=== PATIENT | female | born 1925 | race Asian ===

== ENCOUNTER 2017-04-11 17:07 | Inpatient (IN) | payer MEDICARE ==
[~2017-04-11] VITALS: Ht 152.4 cm; Wt 37.6 kg
[2017-04-11] MEDS ORDERED: AZOPT10 ML OP (17:21)
[2017-04-11] MEDS ORDERED: MILK OF MA400 MG/51 ORAL (17:21)
[2017-04-11] MEDS ORDERED: COMBIGAN EYE DRO5 ML OP (17:21)
[2017-04-11] MEDS ORDERED: ILEVRO1.7 ML OP (17:21)
[2017-04-11] MEDS ORDERED: CATAPRES0.1 MG ORAL (17:21)
[2017-04-11] MEDS ORDERED: HYDRALAZINE HC100 MG ORAL (17:21)
[2017-04-11] MEDS ORDERED: MULTIVITAMINS1 EAC2 ORAL (17:21)
[2017-04-11] MEDS ORDERED: LEVOTHYROXINE88 MCG ORAL (17:21)
[2017-04-11] MEDS ORDERED: ARTIFICIALS TEA30 M1 OP (17:21)
[2017-04-11] MEDS ORDERED: DULCOLAX STOOL100 M1 PO (17:21)
[2017-04-11] MEDS ORDERED: TRAMADOL HCL50 MG ORAL (17:21)
[2017-04-11] MEDS ORDERED: ACETAMINOPHEN325 M1 ORAL (17:21)
[2017-04-11 17:28] VITALS: BP 184/93
[2017-04-11] MEDS ORDERED: Tetracaine 0.5% Opth Soln ONE (17:33)
[2017-04-11] MEDS ORDERED: Tetracaine 0.5% Opth Soln RIGHT EYE ONE (17:45)
[2017-04-11 18:37] VITALS: BP 200/72
[2017-04-11 19:20] VITALS: BP 178/78
[2017-04-11] MEDS ORDERED: Vancomycin Intravitreal Inj IVITRE ONE (20:00)
[2017-04-11 20:14] LABS: BASOPHILS % (AUTO) 0.7 % (0.0-2.0); EOSINOPHILS % (AUTO) 1.7 % (0.0-3.0); MEAN CORPUSCULAR HEMOGLOBIN 33.1 PG (27.0-31.0); MEAN CORPUSCULAR HGB CONC 34.1 G/DL (32.0-36.0); MEAN CORPUSCULAR VOLUME 97 FL (80-99); MEAN PLATELET VOLUME 6.4 FL (6.5-10.1); MONOCYTES % (AUTO) 7.7 % (1.0-10.0); PLATELET COUNT 216 K/UL (150-450); RED BLOOD COUNT 4.11 M/UL (4.20-5.40); RED CELL DISTRIBUTION WIDTH 13.2 % (11.6-14.8); WHITE BLOOD COUNT 10.2 K/UL (4.8-10.8)
[2017-04-11 20:29] LABS: INR 0.9 (0.9-1.1); PROTHROMBIN TIME 9.5 SEC (9.30-11.50)
[2017-04-11 20:33] LABS: TROPONIN I < 0.30 ng/mL (<=0.30)
[2017-04-11 20:36] LABS: ALANINE AMINOTRANSFERASE 18 U/L (3-33); ALBUMIN/GLOBULIN RATIO 1.4 (1.0-2.7); ANION GAP 12 (5-15); ASPARTATE AMINO TRANSFERASE 24 U/L (5-40); CALCIUM 9.4 mg/dL (8.6-10.2); CARBON DIOXIDE 27 mEQ/L (20-30); CHLORIDE 103 mEQ/L (98-107); CREATININE 0.5 mg/dL (0.5-0.9); HEMOLYSIS 7; LIPASE 29 U/L (< 60); POTASSIUM 3.9 mEQ/L (3.4-4.9); SODIUM 142 mEQ/L (135-145); TOTAL PROTEIN 7.2 g/dL (6.6-8.7)
[2017-04-11] MEDS ORDERED: Lidocaine 2% MPF 5ml Vial INJ ONE (20:38)
[2017-04-11] MEDS ORDERED: LORazepam Inj 2mg/ml 1ml ONE (20:58)
[2017-04-11] MEDS ORDERED: Morphine Sulfate 2mg/ml Inj IVP ONE (21:00)
[2017-04-11] MEDS ORDERED: LORazepam Inj 2mg/ml 1ml IV ONE (21:00)
--- NOTE | 2017-04-11 21:27 | Consultation ---
Consult Note Consult Note Chief Complaint: ER Consult - [facility] ER History of Present Illness: The patient has a history of CRVO/CME OU since 2009 and recently received Avastin injection (04/06) OD. She developed pain and vision loss and presents to the ER for evaluation. She offers limited history due to difficulty recalling her medical history attributed to dementia. She denies recent fever, chills, medical status changes. She also has a history of glaucoma and uses drops. Med / Fam / Social History: CRVO, CME OU Dementia CE/IOL OU Physical Exam: Patient resting in ER bed Tp: 25, 18 VA: HM, 20/80 Slit-Lamp Exam: LLL: Normal OU C/S: W/Q OU Cornea: Clear OU A/C: 2mm hyphema OD, clear OS Iris: Normal OU Lens: IOL OU B-scan OD: Vitreous hyper-echo, no RD Dilated Fundus Exam: Vitreous: Vitreous opacity, no view OD, Clear OS Disc: Cupping OS Macula: Normal OS Vessels: Tortuous OS Peripheral: No tears, holes or detachment OS Assessment: Plan: Type Code Description ICD-10-CM Condition H44.001 Unspecified purulent endophthalmitis, right eye ICD-10-CM Condition H40.1132 Primary open-angle glaucoma, bilateral, moderate stage ICD-10-CM Condition H34.8130 Central retinal vein occlusion, bilateral, with macular edema 1. Acute endophthalmitis OD, s/p Avastin injection (04/06) - Discussed the condition with the patient at length - After careful review of the treatment options including the risks, benefits and alternatives, the patient elects to proceed with vitreous biopsy and injection of intravitreal antibiotics - Patient signed informed consent - Admit to inpatient for higher level of care - Start Cyclo TID and PF QID OD; Cosopt BID Description CPT 48512 1.00 UN Initial hospital care CPT 60484 RT 1.00 UN Ophth US, B w/non-quant A CPT 45252 RT 1.00 UN Release of eye fluid Injection Note: Injection Note: Procedure Note Topical anesthetic drops and lidocaine soaked pledgets were applied followed by injection of subconjunctival lidocaine in the inferior fornix of the RIGHT EYE. The eyelids, lashes and ocular surface were sterilized with 5% Povidone-Iodine. A lid speculum was placed and vitreous biopsy was performed; the sample was labeled and sent to the lab. Vancomycin and Ceftazidime was injected via the pars plana inferotemporally. Additional Povidone-Iodine 5% was applied to the injection site. The eye was rinsed and topical antibiotics was applied. The patient tolerated the procedure well and without complications. Assessment/Plan Complete Alpesh Cummings M.D. Apr 11, 2017 21:27
[2017-04-11] MEDS ORDERED: traMADol 50mg tab ORAL PRN (21:30)
[2017-04-11] MEDS ORDERED: Miralax 17gm pkt ORAL PRN (21:30)
[2017-04-11] MEDS ORDERED: Morphine Sulfate 2mg/ml Inj IVP PRN (21:30)
[2017-04-11] MEDS ORDERED: Mylanta II UD 30ml ORAL PRN (21:30)
[2017-04-11] MEDS ORDERED: Milk of Magnesia 30ml Ud ORAL PRN (21:30)
[2017-04-11 21:54] VITALS: BP 126/55
--- NOTE | 2017-04-11 21:56 | Emergency Room Report ---
History of Present Illness General Chief Complaint: Eye Problems Source: Patient, Medical Record Present Illness HPI [facility]. Patient has a history of glaucoma. And possible history of prior eye infections. Patient states that she has received injection in the right eye before. On initial evaluation patient could not tell me what when she had received the injections. She is complaining of mild right eye pain. Patient also has significant bilateral eye redness worse on the right. She denies any fever chest pain shortness of breath. No other complaints were noted. Patient was sent here for further evaluation. Patient's primary care physician is Dr. Diaz. No other modifying factors. No other associated signs and symptoms. No other complaints were noted. Allergies: Coded Allergies: No Known Allergies (Unverified , 04/11/17) Patient History Past Medical History: HTN, other - hypothyroid, lipoma Past Surgical History: none Pertinent Family History: none Social History: Denies: alcohol use, drug use, smoking Now: No Reviewed Nursing Documentation: PMH: Agreed, PSxH: Agreed Nursing Documentation-PMH Hx Cardiac Problems: No Hx Hypertension: Yes Hx Pacemaker: No Hx Asthma: No Hx COPD: No Hx Diabetes: No Hx Cancer: No Hx Dialysis: No History Of Psychiatric Problem: No Hx Neurological Problems: Yes - weakness,hypothyroid Hx Cerebrovascular Accident: No Hx Seizures: No Review of Systems All Other Systems: negative except mentioned in HPI Physical Exam Vital Signs Date Time Temp Pulse Resp B/P Pulse Ox O2 Delivery O2 Flow Rate FiO2 04/11/17 17:01 98.4 92 16 182/90 99 Room Air Sp02 EP Interpretation: reviewed, normal General Appearance: alert Head: atraumatic Eyes: bilateral eye normal inspection - bilateral eye redness, worse on right, e/o hypopyon, bilateral eye other - elevated iop approx 40 mm hg both sides ENT: normal ENT inspection, hearing grossly normal, normal voice Neck: normal inspection, full range of motion, supple, no bony tend Respiratory: normal inspection, lungs clear, normal breath sounds, no respiratory distress, no retraction, no wheezing Cardiovascular #1: regular rate, rhythm, no edema Gastrointestinal: normal inspection, normal bowel sounds, non tender, soft, no guarding, no hernia Genitourinary: no CVA tenderness Musculoskeletal: normal inspection, back normal, normal range of motion Neurologic: normal inspection, alert, responsive, speech normal Psychiatric: normal inspection, judgement/insight normal, mood/affect normal Skin: normal inspection, normal color, no rash Medical Decision Making Diagnostic Impression: Primary Impression: Endophthalmitis Qualified Codes: H44.001 - Unspecified purulent endophthalmitis, right eye ER Course Patient presents emergency department today complaining of eye redness. Differential considerations include conjunctivitis, acute angle glaucoma, endophthalmitis just to name a few. Patient's exam is concerning for infection. Given the hypopyon I saw on the right eye. Case was discussed with Dr. Krishan Gunn from ophthalmology will consult to Dr. Cummings. It was felt the patient will require immediate injection of antibiotics and to the right eye as well as admission to the hospital for further treatment. Case was discussed with admitting hospitalist for admission. Labs Test 04/11/17 19:45 White Blood Count 10.2 K/UL (4.8-10.8) Red Blood Count 4.11 M/UL (4.20-5.40) Hemoglobin 13.6 G/DL (12.0-16.0) Hematocrit 39.8 % (37.0-47.0) Mean Corpuscular Volume 97 FL (80-99) Mean Corpuscular Hemoglobin 33.1 PG (27.0-31.0) Mean Corpuscular Hemoglobin Concent 34.1 G/DL (32.0-36.0) Red Cell Distribution Width 13.2 % (11.6-14.8) Platelet Count 216 K/UL (150-450) Mean Platelet Volume 6.4 FL (6.5-10.1) Neutrophils (%) (Auto) 67.0 % (45.0-75.0) Lymphocytes (%) (Auto) 23.0 % (20.0-45.0) Monocytes (%) (Auto) 7.7 % (1.0-10.0) Eosinophils (%) (Auto) 1.7 % (0.0-3.0) Basophils (%) (Auto) 0.7 % (0.0-2.0) Prothrombin Time 9.5 SEC (9.30-11.50) Prothromb Time International Ratio 0.9 (0.9-1.1) Activated Partial Thromboplast Time 34 SEC (23-33) Sodium Level 142 mEQ/L (135-145) Potassium Level 3.9 mEQ/L (3.4-4.9) Chloride Level 103 mEQ/L (98-107) Carbon Dioxide Level 27 mEQ/L (20-30) Anion Gap 12 (5-15) Blood Urea Nitrogen 15 mg/dL (7-23) Creatinine 0.5 mg/dL (0.5-0.9) Estimat Glomerular Filtration Rate mL/min (>60) Glucose Level 128 mg/dL (74-106) Calcium Level 9.4 mg/dL (8.6-10.2) Total Bilirubin 0.3 mg/dL (0.0-1.2) Aspartate Amino Transf (AST/SGOT) 24 U/L (5-40) Alanine Aminotransferase (ALT/SGPT) 18 U/L (3-33) Alkaline Phosphatase 57 U/L (35-104) Troponin I < 0.30 ng/mL (<=0.30) Total Protein 7.2 g/dL (6.6-8.7) Albumin 4.2 g/dL (3.5-5.2) Globulin 3.0 g/dL Albumin/Globulin Ratio 1.4 (1.0-2.7) Lipase 29 U/L (< 60) EKG Diagnostic Results Rate: normal Rhythm: NSR ST Segments: no acute changes Rhythm Strip Diag. Results EP Interpretation: yes Rate: 77 Rhythm: NSR, no PVC's, no ectopy Chest X-Ray Diagnostic Results Chest X-Ray Diagnostic Results : Chest X-Ray Ordered: Yes # of Views/Limited/Complete: 1 View Indication: Other - infection EP Interpretation: Yes Interpretation: no consolidation, no effusion, no pneumothorax, no acute cardiopulmonary disease Impression: No acute disease Interpreting ER Provider: Electronically signed by Raven Gonzalez MD Last Vital Signs Date Time Temp Pulse Resp B/P Pulse Ox O2 Delivery O2 Flow Rate FiO2 04/11/17 18:53 200/72 04/11/17 18:37 83 17 98 Room Air 04/11/17 17:28 98.9 Status: improved Disposition: ADMITTED INPATIENT Condition: Serious Referrals: NORBERT DIAZ (PCP) RAVEN GONZALEZ M.D. Apr 11, 2017 21:56
[2017-04-11] MEDS: HydrALAZINE 50mg tab ORAL SCH (22:00)
[2017-04-12] VITALS: BP 134/64
[2017-04-12 04:00] VITALS: BP 129/61
[2017-04-12] MEDS: HydrALAZINE 50mg tab ORAL SCH ×3 (05:29→22:23)
--- NOTE | 2017-04-12 07:48 | History and Physical ---
History of Present Illness General Date patient seen: Apr 12, 2017 Time patient seen: 07:48 Reason for Hospitalization: Eye Problems Present Illness HPI 89y/o female with pmh of HTN, hypothyroidism, glaucoma, dementia who presents with R eye vision problems. The patient has a history of CRVO/CME OU since 2009 and recently received Avastin injection (728) OD. She developed pain and vision loss and presents to the ER for evaluation. Pt is poor historian. Denies recent f/c, n/v, d/c, chest pain, SOB. Allergies: Coded Allergies: No Known Allergies (Unverified , 04/11/17) Medication History Scheduled Brimonidine Tartrate/Timolol (Combigan Eye Drops), 5 ML OP BID, (Reported) Brinzolamide (Azopt), 10 ML OP BID, (Reported) Clonidine Hcl* (Catapres*), 0.1 MG ORAL EVERY 6 HOURS, (Reported) Hydralazine Hcl* (Hydralazine Hcl*), 100 MG ORAL EVERY 8 HOURS, (Reported) Levothyroxine Sodium* (Levothyroxine Sodium*), 88 MCG ORAL DAILY, (Reported) Magnesium Hydroxide* (Milk Of Magnesia*), 30 ML ORAL DAILY, (Reported) Multivitamins* (Multivitamins*), 1 TAB ORAL DAILY, (Reported) Nepafenac (Ilevro), 1.7 ML OP DAILY, (Reported) Scheduled PRN Acetaminophen* (Acetaminophen 325MG Tablet*), 650 MG ORAL Q6H PRN for Pain Scale (3-5), (Reported) Tramadol Hcl* (Ultram*), 50 MG ORAL Q6H PRN for For Pain, (Reported) Miscellaneous Medications Dextran 70/Hypromellose (Artificials Tears Drops), 30 ML OP, (Reported) Docusate Sodium (Dulcolax Stool Softener), 100 MG PO, (Reported) Patient History Healthcare decision maker Resuscitation status Full Code Advanced Directive on File Past Medical/Surgical History Past Medical/Surgical History: (1) HTN (hypertension) (2) Hypothyroid (3) Glaucoma (4) Dementia Family History Family History: Patient reports no known family medical history. Social History Social History: (1) Lives in longterm Review of Systems Constitutional: Reports: no symptoms Eye: Reports: blurred vision, eye pain ENT: Reports: no symptoms Respiratory: Reports: no symptoms Cardiovascular: Reports: no symptoms Gastrointestinal: Reports: no symptoms Genitourinary: Reports: no symptoms Musculoskeletal: Reports: no symptoms Skin: Reports: no symptoms Psychiatric: Reports: no symptoms Neurological: Reports: no symptoms Endocrine: Reports: no symptoms Hematologic/Lymphatic: Reports: no symptoms Physical Exam Physical Exam Narrative General: alert, cooperative, no distress, appears stated age Head: normocephalic, without obvious abnormality, atraumatic Eyes: conjunctivae/corneas clear. PERRL, EOM's intact Throat: lips, mucosa, and tongue normal. MMM Neck: supple, symmetrical, trachea midline, and no JVD Lungs: clear to auscultation bilaterally Heart: regular rate and rhythm, S1, S2 normal, no murmur, click, rub or gallop Abdomen: soft, non-tender, non-distended, bowel sounds normal; no masses or organomegaly Extremities: extremities normal, atraumatic, no cyanosis or edema Pulses: 2+ and symmetric Skin: skin color, texture, turgor normal; no rashes or lesions Neurologic: grossly normal, no focal deficits Last 24 Hour Vital Signs Date Time Temp Pulse Resp B/P Pulse Ox O2 Delivery O2 Flow Rate FiO2 04/12/17 05:29 129/61 04/12/17 05:29 129/61 04/12/17 04:00 97.6 62 20 129/61 97 Room Air 04/12/17 00:15 134/68 04/12/17 00:00 98.7 69 20 134/64 95 Room Air 04/11/17 22:40 69 16 126/55 Room Air 04/11/17 21:54 98.9 69 16 126/55 95 Room Air 04/11/17 19:20 98.9 78 19 178/78 98 Room Air 04/11/17 18:53 200/72 04/11/17 18:37 83 17 200/72 98 Room Air 04/11/17 17:28 98.9 88 15 184/93 97 Room Air 04/11/17 17:01 98.4 92 16 182/90 99 Room Air Intake and Output 04/11/17 04/12/17 19:00 07:00 Intake Total 0 ml Balance 0 ml Intake Oral 0 ml # Voids 1 # Bowel Movements 1 Laboratory Tests Test 04/11/17 19:45 White Blood Count 10.2 K/UL (4.8-10.8) Red Blood Count 4.11 M/UL (4.20-5.40) L Hemoglobin 13.6 G/DL (12.0-16.0) Hematocrit 39.8 % (37.0-47.0) Mean Corpuscular Volume 97 FL (80-99) Mean Corpuscular Hemoglobin 33.1 PG (27.0-31.0) H Mean Corpuscular Hemoglobin Concent 34.1 G/DL (32.0-36.0) Red Cell Distribution Width 13.2 % (11.6-14.8) Platelet Count 216 K/UL (150-450) Mean Platelet Volume 6.4 FL (6.5-10.1) L Neutrophils (%) (Auto) 67.0 % (45.0-75.0) Lymphocytes (%) (Auto) 23.0 % (20.0-45.0) Monocytes (%) (Auto) 7.7 % (1.0-10.0) Eosinophils (%) (Auto) 1.7 % (0.0-3.0) Basophils (%) (Auto) 0.7 % (0.0-2.0) Prothrombin Time 9.5 SEC (9.30-11.50) Prothromb Time International Ratio 0.9 (0.9-1.1) Activated Partial Thromboplast Time 34 SEC (23-33) H Sodium Level 142 mEQ/L (135-145) Potassium Level 3.9 mEQ/L (3.4-4.9) Chloride Level 103 mEQ/L (98-107) Carbon Dioxide Level 27 mEQ/L (20-30) Anion Gap 12 (5-15) Blood Urea Nitrogen 15 mg/dL (7-23) Creatinine 0.5 mg/dL (0.5-0.9) Estimat Glomerular Filtration Rate mL/min (>60) Glucose Level 128 mg/dL (74-106) H Calcium Level 9.4 mg/dL (8.6-10.2) Total Bilirubin 0.3 mg/dL (0.0-1.2) Aspartate Amino Transf (AST/SGOT) 24 U/L (5-40) Alanine Aminotransferase (ALT/SGPT) 18 U/L (3-33) Alkaline Phosphatase 57 U/L (35-104) Troponin I < 0.30 ng/mL (<=0.30) Total Protein 7.2 g/dL (6.6-8.7) Albumin 4.2 g/dL (3.5-5.2) Globulin 3.0 g/dL Albumin/Globulin Ratio 1.4 (1.0-2.7) Lipase 29 U/L (< 60) Height (Feet): 5 Height (Inches): 0.00 Weight (Pounds): 83 Medications Current Medications Medications (Trade) Dose Ordered Sig/Rigoberto Route PRN Reason Start Time Stop Time Status Last Admin Dose Admin Acetaminophen (Tylenol) 650 mg Q4H PRN ORAL Mild Pain (Pain Scale 1-3) 04/11/17 21:30 05/11/17 21:29 Al Hydroxide/Mg Hydroxide (Mylanta II) 30 ml Q6H PRN ORAL dyspepsia 04/11/17 21:30 05/11/17 21:29 Bisacodyl (Dulcolax) 10 mg HSPRN PRN RECTAL Constipation 04/11/17 21:30 05/11/17 21:29 Clonidine HCl (Catapres) 0.1 mg EVERY 6 HOURS ORAL 04/12/17 00:00 05/12/17 00:00 04/12/17 05:29 Cyclopentolate HCl (Cyclogyl) 1 drop TID RIGHT EYE 04/12/17 09:00 05/12/17 08:59 Dextrose (Dextrose 50%) STAT PRN IV Hypoglycemia 04/11/17 21:30 05/11/17 21:29 Diphenhydramine HCl (Benadryl) 25 mg Q6H PRN ORAL Itching/Pruritis 04/11/17 21:30 05/11/17 21:29 Docusate Sodium (Colace) 100 mg EVERY 12 HOURS ORAL 04/12/17 09:00 05/12/17 08:59 Dorzolamide/ Timolol (Cosopt) 1 drop TWICE A DAY BOTH EYES 04/12/17 09:00 05/12/17 08:59 Hydralazine HCl (Apresoline) 100 mg Q8HR ORAL 04/11/17 22:00 05/11/17 21:59 04/12/17 05:29 Levothyroxine Sodium (Synthroid) 88 mcg ACBREAKFAST ORAL 04/12/17 06:30 05/12/17 06:29 04/12/17 05:28 Magnesium Hydroxide (Mom) 30 ml DAILY ORAL 04/12/17 09:00 05/12/17 08:59 Magnesium Hydroxide (Mom) 30 ml HSPRN PRN ORAL Constipation 04/11/17 21:30 05/11/17 21:29 Multivitamins (Multivitamins) 1 tab DAILY ORAL 04/12/17 09:00 05/12/17 08:59 Ondansetron HCl (Zofran) 4 mg Q6H PRN IVP Nausea & Vomiting 04/11/17 21:30 05/11/17 21:29 Polyethylene Glycol (Miralax) 17 gm HSPRN PRN ORAL Constipation 04/11/17 21:30 05/11/17 21:29 Prednisolone Acetate (Pred Forte) 1 drop QID ONCE RIGHT EYE 04/12/17 09:00 04/12/17 09:01 Tramadol HCl (Ultram) 50 mg Q4H PRN ORAL For mod to severe Pain 04/11/17 23:50 04/18/17 23:49 Assessment/Plan Problem List: (1) Unspecified purulent endophthalmitis, right eye ICD Codes: H44.001 - Unspecified purulent endophthalmitis, right eye SNOMED: 87971526 (2) Primary open-angle glaucoma, bilateral, moderate stage ICD Codes: H40.1132 - Primary open-angle glaucoma, bilateral, moderate stage SNOMED: 70892633 (3) Central retinal vein occlusion, bilateral, with macular edema ICD Codes: H34.8130 - Central retinal vein occlusion, bilateral, with macular edema SNOMED: 338200248 (4) HTN (hypertension) ICD Codes: I10 - Essential (primary) hypertension SNOMED: 00776962 (5) Hypothyroid ICD Codes: E03.9 - Hypothyroidism, unspecified SNOMED: 35069017 (6) Glaucoma ICD Codes: H40.9 - Unspecified glaucoma SNOMED: 37762707 (7) Dementia ICD Codes: F03.90 - Unspecified dementia without behavioral disturbance SNOMED: 14154158 Status: stable Assessment/Plan Acute endophthalmitis of R eye, s/p Avastin injection (04/06) Admit inpt Ophthalmology consulted, appreciate rec's s/p vitreous biopsy and injection of intravitrial abx per optho on 04/11 Cyclo TID and PF QID OD; Cosopt BID Cont other home meds Pain control Supportive care DVT Prophylaxis: SCD Code Status: Full Hospital Classification Declaration: Based on this initial evaluation, and depending on the patient's clinical course, I anticipate that this patient will require hospitalization for 2-3 days for acute endophthalmitis and close respiratory/hemodynamic monitoring. Disposition: Once the patient is stable to leave the hospital, I anticipate the patient will likely be discharged to the following environment: back to SNF I spent 70 minutes on this patient's case, and 38 minutes were dedicated to counseling and/or care coordination. Discussed with patient/family, nursing staff, SW/CM, ophthalmology regarding clinical status, treatment course, and disposition planning Time of note may not reflect time of encounter. Aly Mclean M.D. Apr 12, 2017 07:48
[2017-04-12 08:03] VITALS: BP 137/72
[2017-04-12] MEDS: Milk of Magnesia 30ml Ud ORAL SCH (08:45)
[2017-04-12] MEDS: Docusate 100mg cap ORAL SCH ×2 (08:46→22:22)
[2017-04-12] MEDS: Cyclopentolate 1% Opth Sol RIGHT EYE SCH ×3 (08:46→17:53)
[2017-04-12] MEDS: Cosopt Opth Soln 10 mL Btl BOTH EYES SCH ×2 (08:47→17:52)
[2017-04-12] MEDS ORDERED: Pred Forte 1% Opth Susp 1ml RIGHT EYE ONE (09:00)
[2017-04-12] MEDS ORDERED: NS 275ml ONE (10:43)
[2017-04-12] MEDS ORDERED: Tubing IV Secondary IV ONE (10:43)
--- NOTE | 2017-04-12 10:51 | Diagnostic Imaging Report ---
Indication: Cough Comparison: None A single view chest radiograph was obtained. Findings: No definite infiltrate or pulmonary vascular congestion identified. The heart is enlarged. The aorta is mildly enlarged consistent with atherosclerotic vascular disease. The bones are osteopenic. Impression: No acute disease
[2017-04-12 11:48] VITALS: BP 127/57
[2017-04-12 16:10] VITALS: BP 152/67
[2017-04-12 20:00] VITALS: BP 145/69
[2017-04-13] VITALS: BP 128/52
[2017-04-13 04:00] VITALS: BP 132/55
[2017-04-13] MEDS: HydrALAZINE 50mg tab ORAL SCH ×3 (05:26→21:10)
[2017-04-13 08:00] VITALS: BP 125/58
[2017-04-13] MEDS: Cosopt Opth Soln 10 mL Btl BOTH EYES SCH ×2 (10:43→17:19)
[2017-04-13] MEDS: Milk of Magnesia 30ml Ud ORAL SCH (10:46)
[2017-04-13] MEDS: Docusate 100mg cap ORAL SCH ×2 (10:46→21:10)
[2017-04-13] MEDS: Cyclopentolate 1% Opth Sol RIGHT EYE SCH ×3 (10:46→17:20)
[2017-04-13 12:00] VITALS: BP 144/56
[2017-04-13 16:00] VITALS: BP 146/71
[2017-04-13] MEDS: traMADol 50mg tab ORAL PRN (17:43)
--- NOTE | 2017-04-13 18:14 | General Progress Note ---
Progress Note Progress Note S: Patient reports that her pain has resolved. Vision still blurred. Using drops as prescribed. O: HM OD, Tp 18 THEA, AC deep, no hypopyon Vitreous opacities, no view to posterior pole B-scan OD: No RD A/P: Endophthalmitis OD (injection-associated) s/p T/I; Improving - Discussed the status of the condition - Continue current care - Follow cultures (GS, + WBCs) - Re-evaluate in 3-4 days (May discharge to in a few days and follow as outpatient if care can be administered at the facility) Contact me as necessary - Alpesh Cummings M.D. Apr 13, 2017 18:14
[2017-04-13 20:00] VITALS: BP 163/66
--- NOTE | 2017-04-13 21:44 | General Progress Note ---
Assessment/Plan Problem List: (1) Unspecified purulent endophthalmitis, right eye ICD Codes: H44.001 - Unspecified purulent endophthalmitis, right eye SNOMED: 60610756 (2) Primary open-angle glaucoma, bilateral, moderate stage ICD Codes: H40.1132 - Primary open-angle glaucoma, bilateral, moderate stage SNOMED: 55181249 (3) Central retinal vein occlusion, bilateral, with macular edema ICD Codes: H34.8130 - Central retinal vein occlusion, bilateral, with macular edema SNOMED: 011455195 (4) HTN (hypertension) ICD Codes: I10 - Essential (primary) hypertension SNOMED: 92914150 (5) Hypothyroid ICD Codes: E03.9 - Hypothyroidism, unspecified SNOMED: 75656427 (6) Glaucoma ICD Codes: H40.9 - Unspecified glaucoma SNOMED: 57928485 (7) Dementia ICD Codes: F03.90 - Unspecified dementia without behavioral disturbance SNOMED: 56054321 Status: stable Assessment/Plan Acute endophthalmitis of R eye, s/p Avastin injection (04/06) Ophthalmology consulted, appreciate rec's s/p vitreous biopsy and injection of intravitrial abx per optho on 04/11 Cyclo TID and PF QID OD; Cosopt BID Cont other home meds Pain control Supportive care DVT Prophylaxis: SCD Code Status: Full Hospital Classification Declaration: Based on this initial evaluation, and depending on the patient's clinical course, I anticipate that this patient will require hospitalization for 2-3 days for acute endophthalmitis and close respiratory/hemodynamic monitoring. Disposition: Once the patient is stable to leave the hospital, I anticipate the patient will likely be discharged to the following environment: back to SNF Discussed with patient/family, nursing staff, SW/CM, ophthalmology regarding clinical status, treatment course, and disposition planning Time of note may not reflect time of encounter. Subjective Date patient seen: Apr 13, 2017 Time patient seen: 12:00 Constitutional: Reports: no symptoms HEENT: Reports: blurred vision, eye pain Cardiovascular: Reports: no symptoms Respiratory: Reports: no symptoms Gastrointestinal/Abdominal: Reports: no symptoms Genitourinary: Reports: no symptoms Neurologic/Psychiatric: Reports: no symptoms Endocrine: Reports: no symptoms Hematologic/Lymphatic: Reports: no symptoms Allergies: Coded Allergies: No Known Allergies (Unverified , 04/11/17) Subjective No acute o/n events Using eye drop Pain improved Still w/ blurry vision Objective Last 24 Hour Vital Signs Date Time Temp Pulse Resp B/P Pulse Ox O2 Delivery O2 Flow Rate FiO2 04/13/17 21:10 163/66 04/13/17 20:00 97.9 19 163/66 96 Room Air 04/13/17 18:42 97.9 04/13/17 17:20 146/71 04/13/17 16:00 97.9 60 19 146/71 95 Room Air 04/13/17 13:16 125/58 04/13/17 12:05 125/58 04/13/17 12:00 97.7 63 18 144/56 97 Room Air 04/13/17 08:00 97.5 58 18 125/58 98 Room Air 04/13/17 05:26 142/63 04/13/17 05:26 142/63 04/13/17 04:00 98.2 62 19 132/55 97 Room Air 04/13/17 00:16 128/52 04/13/17 00:00 97.7 60 20 128/52 95 Room Air 04/12/17 22:23 145/69 Intake and Output 04/12/17 04/13/17 19:00 07:00 # Voids 4 # Bowel Movements 1 Height (Feet): 5 Height (Inches): 0.00 Weight (Pounds): 83 Objective General: alert, cooperative, no distress, appears stated age Head: normocephalic, without obvious abnormality, atraumatic Eyes: conjunctivae/corneas clear. Throat: lips, mucosa, and tongue normal. MMM Neck: supple, symmetrical, trachea midline, and no JVD Lungs: clear to auscultation bilaterally Heart: regular rate and rhythm, S1, S2 normal, no murmur, click, rub or gallop Abdomen: soft, non-tender, non-distended, bowel sounds normal; no masses or organomegaly Extremities: extremities normal, atraumatic, no cyanosis or edema Pulses: 2+ and symmetric Skin: skin color, texture, turgor normal; no rashes or lesions Neurologic: grossly normal, no focal deficits Aly Mclean M.D. Apr 13, 2017 21:44
[2017-04-14] VITALS: BP 136/57
[2017-04-14 04:00] VITALS: BP 102/47
[2017-04-14] MEDS: HydrALAZINE 50mg tab ORAL SCH ×3 (05:46→20:23)
[2017-04-14 08:00] VITALS: BP 119/49
[2017-04-14] MEDS: Milk of Magnesia 30ml Ud ORAL SCH ×2 (09:00→09:11)
[2017-04-14] MEDS: Docusate 100mg cap ORAL SCH ×2 (09:11→20:23)
[2017-04-14] MEDS: Cosopt Opth Soln 10 mL Btl BOTH EYES SCH ×2 (09:12→18:00)
[2017-04-14] MEDS: Cyclopentolate 1% Opth Sol RIGHT EYE SCH ×3 (09:12→18:00)
[2017-04-14 12:00] VITALS: BP 137/63
--- NOTE | 2017-04-14 14:55 | General Progress Note ---
Assessment/Plan Problem List: (1) Unspecified purulent endophthalmitis, right eye ICD Codes: H44.001 - Unspecified purulent endophthalmitis, right eye SNOMED: 27396526 (2) Primary open-angle glaucoma, bilateral, moderate stage ICD Codes: H40.1132 - Primary open-angle glaucoma, bilateral, moderate stage SNOMED: 20735326 (3) Central retinal vein occlusion, bilateral, with macular edema ICD Codes: H34.8130 - Central retinal vein occlusion, bilateral, with macular edema SNOMED: 490844663 (4) HTN (hypertension) ICD Codes: I10 - Essential (primary) hypertension SNOMED: 61373090 (5) Hypothyroid ICD Codes: E03.9 - Hypothyroidism, unspecified SNOMED: 53186772 (6) Glaucoma ICD Codes: H40.9 - Unspecified glaucoma SNOMED: 93775649 (7) Dementia ICD Codes: F03.90 - Unspecified dementia without behavioral disturbance SNOMED: 20779853 Status: stable Assessment/Plan Acute endophthalmitis of R eye, s/p Avastin injection (04/06) Ophthalmology consulted, appreciate rec's s/p vitreous biopsy and injection of intravitrial abx per optho on 04/11 Cyclo TID and PF QID OD; Cosopt BID Cont other home meds Pain control Supportive care DC likely Tues per optho DVT Prophylaxis: SCD Code Status: Full Hospital Classification Declaration: Based on this initial evaluation, and depending on the patient's clinical course, I anticipate that this patient will require hospitalization for 2-3 days for acute endophthalmitis and close respiratory/hemodynamic monitoring. Disposition: Once the patient is stable to leave the hospital, I anticipate the patient will likely be discharged to the following environment: back to SNF Discussed with patient/family, nursing staff, SW/CM, ophthalmology regarding clinical status, treatment course, and disposition planning Time of note may not reflect time of encounter. Subjective Date patient seen: Apr 14, 2017 Time patient seen: 14:54 ROS Limited/Unobtainable: Yes Constitutional: Reports: no symptoms HEENT: Reports: blurred vision, eye pain Cardiovascular: Reports: no symptoms Respiratory: Reports: no symptoms Gastrointestinal/Abdominal: Reports: no symptoms Genitourinary: Reports: no symptoms Neurologic/Psychiatric: Reports: no symptoms Endocrine: Reports: no symptoms Hematologic/Lymphatic: Reports: no symptoms Allergies: Coded Allergies: No Known Allergies (Unverified , 04/11/17) All Systems: reviewed and negative except above Subjective No acute o/n events Using eye drop Pain improved Vision slowly improving Objective Last 24 Hour Vital Signs Date Time Temp Pulse Resp B/P Pulse Ox O2 Delivery O2 Flow Rate FiO2 04/14/17 14:39 137/63 04/14/17 12:36 137/63 04/14/17 12:00 97.7 50 20 137/63 97 Room Air 04/14/17 08:00 97.5 50 20 119/49 96 Room Air 04/14/17 05:46 102/47 04/14/17 05:41 102/47 04/14/17 04:00 97.7 48 17 102/47 Room Air 04/14/17 00:04 136/57 04/14/17 00:00 97.7 51 19 136/57 96 Room Air 04/13/17 21:10 163/66 04/13/17 21:00 51 04/13/17 20:00 97.9 19 163/66 96 Room Air 04/13/17 18:42 97.9 04/13/17 17:20 146/71 04/13/17 16:00 97.9 60 19 146/71 95 Room Air Intake and Output 04/13/17 04/14/17 19:00 07:00 Intake Total 800 ml Balance 800 ml Intake Oral 800 ml # Voids 3 Height (Feet): 5 Height (Inches): 0.00 Weight (Pounds): 83 Objective General: alert, cooperative, no distress, appears stated age Head: normocephalic, without obvious abnormality, atraumatic Eyes: conjunctivae/corneas clear. Throat: lips, mucosa, and tongue normal. MMM Neck: supple, symmetrical, trachea midline, and no JVD Lungs: clear to auscultation bilaterally Heart: regular rate and rhythm, S1, S2 normal, no murmur, click, rub or gallop Abdomen: soft, non-tender, non-distended, bowel sounds normal; no masses or organomegaly Extremities: extremities normal, atraumatic, no cyanosis or edema Pulses: 2+ and symmetric Skin: skin color, texture, turgor normal; no rashes or lesions Neurologic: grossly normal, no focal deficits Aly Mclean M.D. Apr 14, 2017 14:55
[2017-04-14 16:00] VITALS: BP 149/68
[2017-04-14 20:00] VITALS: BP 135/65
[2017-04-14] MEDS ORDERED: D5NS 1000ml IV ONE (21:27)
[2017-04-14] MEDS ORDERED: Tubing IV Secondary IV ONE (21:27)
[2017-04-15] VITALS (8 sets, daily range): BP systolic 126–156; BP diastolic 54–66
[2017-04-15] MEDS: traMADol 50mg tab ORAL PRN (01:49)
[2017-04-15] MEDS: HydrALAZINE 50mg tab ORAL SCH ×3 (05:33→21:04)
[2017-04-15] MEDS: Cosopt Opth Soln 10 mL Btl BOTH EYES SCH ×2 (08:39→17:50)
[2017-04-15] MEDS: Docusate 100mg cap ORAL SCH ×2 (08:39→21:00)
[2017-04-15] MEDS: Cyclopentolate 1% Opth Sol RIGHT EYE SCH ×3 (08:39→17:50)
[2017-04-15] MEDS: Milk of Magnesia 30ml Ud ORAL SCH (08:39)
--- NOTE | 2017-04-15 15:26 | General Progress Note ---
Assessment/Plan Problem List: (1) Unspecified purulent endophthalmitis, right eye ICD Codes: H44.001 - Unspecified purulent endophthalmitis, right eye SNOMED: 80380392 (2) Primary open-angle glaucoma, bilateral, moderate stage ICD Codes: H40.1132 - Primary open-angle glaucoma, bilateral, moderate stage SNOMED: 44472895 (3) Central retinal vein occlusion, bilateral, with macular edema ICD Codes: H34.8130 - Central retinal vein occlusion, bilateral, with macular edema SNOMED: 465550902 (4) HTN (hypertension) ICD Codes: I10 - Essential (primary) hypertension SNOMED: 40396626 (5) Hypothyroid ICD Codes: E03.9 - Hypothyroidism, unspecified SNOMED: 62879577 (6) Glaucoma ICD Codes: H40.9 - Unspecified glaucoma SNOMED: 83731638 (7) Dementia ICD Codes: F03.90 - Unspecified dementia without behavioral disturbance SNOMED: 46040389 Status: stable Assessment/Plan Acute endophthalmitis of R eye, s/p Avastin injection (04/06) Ophthalmology consulted, appreciate rec's s/p vitreous biopsy and injection of intravitrial abx per optho on 04/11 Cyclo TID and PF QID OD; Cosopt BID Cont other home meds Pain control Supportive care DC likely Tues per optho DVT Prophylaxis: SCD Code Status: Full Hospital Classification Declaration: Based on this initial evaluation, and depending on the patient's clinical course, I anticipate that this patient will require hospitalization for 2-3 days for acute endophthalmitis and close respiratory/hemodynamic monitoring. Disposition: Once the patient is stable to leave the hospital, I anticipate the patient will likely be discharged to the following environment: back to SNF Discussed with patient/family, nursing staff, SW/CM, ophthalmology regarding clinical status, treatment course, and disposition planning. D/w optho re mgmt and dispo Time of note may not reflect time of encounter. Subjective Date patient seen: Apr 15, 2017 Time patient seen: 15:24 ROS Limited/Unobtainable: Yes Constitutional: Reports: no symptoms HEENT: Reports: blurred vision, eye pain Cardiovascular: Reports: no symptoms Respiratory: Reports: no symptoms Gastrointestinal/Abdominal: Reports: no symptoms Genitourinary: Reports: no symptoms Neurologic/Psychiatric: Reports: no symptoms Endocrine: Reports: no symptoms Hematologic/Lymphatic: Reports: no symptoms Allergies: Coded Allergies: No Known Allergies (Unverified , 04/11/17) All Systems: reviewed and negative except above Subjective No acute o/n events Using eye drop Pain improved Vision slowly improving Objective Last 24 Hour Vital Signs Date Time Temp Pulse Resp B/P Pulse Ox O2 Delivery O2 Flow Rate FiO2 04/15/17 14:00 104/45 04/15/17 12:21 129/64 04/15/17 12:00 97.7 61 18 129/64 96 Room Air 04/15/17 08:00 97.3 57 18 127/58 94 Room Air 04/15/17 06:30 132/54 04/15/17 05:33 156/65 04/15/17 05:32 156/65 04/15/17 04:00 97.7 56 20 156/65 96 Room Air 04/15/17 00:27 148/66 04/15/17 00:00 97.3 58 18 148/66 95 Room Air 04/14/17 20:23 135/65 04/14/17 20:00 98.4 62 18 135/65 96 Room Air 04/14/17 17:59 149/68 04/14/17 16:00 98.1 55 20 149/68 98 Room Air Intake and Output 04/14/17 04/15/17 19:00 07:00 Intake Total 600 ml Balance 600 ml Intake Oral 600 ml # Voids 1 4 # Bowel Movements 1 Height (Feet): 5 Height (Inches): 0.00 Weight (Pounds): 83 Objective General: alert, cooperative, no distress, appears stated age Head: normocephalic, without obvious abnormality, atraumatic Eyes: conjunctivae/corneas clear. Throat: lips, mucosa, and tongue normal. MMM Neck: supple, symmetrical, trachea midline, and no JVD Lungs: clear to auscultation bilaterally Heart: regular rate and rhythm, S1, S2 normal, no murmur, click, rub or gallop Abdomen: soft, non-tender, non-distended, bowel sounds normal; no masses or organomegaly Extremities: extremities normal, atraumatic, no cyanosis or edema Pulses: 2+ and symmetric Skin: skin color, texture, turgor normal; no rashes or lesions Neurologic: grossly normal, no focal deficits Aly Mclean M.D. Apr 15, 2017 15:26
[2017-04-16 04:00] VITALS: BP 143/60
[2017-04-16] MEDS: HydrALAZINE 50mg tab ORAL SCH ×2 (06:01→15:34)
[2017-04-16] MEDS: traMADol 50mg tab ORAL PRN ×2 (06:01→09:56)
[2017-04-16 08:15] VITALS: BP 116/52
[2017-04-16] MEDS: Docusate 100mg cap ORAL SCH (09:52)
[2017-04-16] MEDS: Milk of Magnesia 30ml Ud ORAL SCH (09:52)
[2017-04-16] MEDS: Cyclopentolate 1% Opth Sol RIGHT EYE SCH ×2 (09:53→13:00)
[2017-04-16] MEDS: Cosopt Opth Soln 10 mL Btl BOTH EYES SCH (09:53)
[2017-04-16 12:15] VITALS: BP 135/66
[2017-04-16 16:02] VITALS: BP 136/65
[2017-04-16] MEDS ORDERED: CYCLOGYL 1% OP S2 ML RIGHT EYE (17:18)
[2017-04-16] MEDS ORDERED: PRED FORTE1 ML RIGHT EYE (17:24)
--- NOTE | 2017-04-16 17:26 | Discharge Summary ---
Discharge Summary Hospital Course Date of Admission Apr 11, 2017 at 20:39 Date of Discharge 04/16/17 Admitting Diagnosis enophthalmitis NIMO Segovia is a 89 year old female who was admitted on Apr 11, 2017 at 20: 39 for Enophthalmitis Discharge Condition Upon Discharge: stable Discharge Disposition Patient was discharged to SNF/Subacute Facility(03) Discharge Diagnoses: Aly Mclean M.D. Apr 16, 2017 17:26
[2017-04-16] MEDS ORDERED: Pred Forte 1% Opth Susp 1ml RIGHT EYE SCH (18:30)
--- NOTE | 2017-04-17 19:07 | Cardiology Report ---
APPROVED REPORT EKG Measurement Heart [id number] QT0T0 QTc0 No QRS complexes found, no ECG analysis possible
== END 2017-04-16 17:54 | DRG 116 ==
LOC: EDBD 17:07 → EMR 19:27 → EDBEDREQ 19:32 → 4E 20:39
PROC: 089 Eye, Drainage (ICD-10-PCS; principal; 2017-04-11)
DX: H44.001 Unspecified purulent endophthalmitis, right eye (principal); H34.8130 Central retinal vein occlusion, bilateral, with macular edema; F03.90 Unspecified dementia, unspecified severity, without behavioral disturbance, psychotic disturbance, mood disturbance, and anxiety; H40.1132 Primary open-angle glaucoma, bilateral, moderate stage; I10 Essential (primary) hypertension; E03.9 Hypothyroidism, unspecified
CPT/HCPCS: 36415; 71010; 80053; 83690; 84484; 85025; 85610; 85730; 87040; 87070; 87075; 87081; 87205; 93005